=== PATIENT | male | born 1995 | race Two or more races ===

== ENCOUNTER 2020-05-10 11:21 | Day surgery (SDC) | payer BC ==
[~2020-05-10] VITALS: Ht 175.3 cm; Wt 93.0 kg
[2020-05-10] MEDS ORDERED: CEFAZOLIN PMX 1GM/50ML 50 ML ONE (12:19)
[2020-05-10] MEDS ORDERED: LIDOCAINE 1%, 20ML ONE (13:24)
[2020-05-10] MEDS ORDERED: FENTANYL PF 100 MCG/2ML ONE (13:25)
[2020-05-10] MEDS ORDERED: NALOXONE 1 MG/ML, 2ML ONE (13:26)
[2020-05-10] MEDS ORDERED: FLUMAZENIL 0.1 MG/1 ML, 5ML ONE (13:26)
[2020-05-10] MEDS ORDERED: MIDAZOLAM 1 MG/ML, 5ML ONE ×2 (13:26)
[2020-05-10 13:42] VITALS: BP 140/92
== END 2020-05-10 15:40 | disposition home or self-care (01) ==
LOC: RAD 11:21
PROVIDERS: ATTEND Internal Medicine
DX: C62.12 Malignant neoplasm of descended left testis (principal); Z90.79 Acquired absence of other genital organ(s)
CPT/HCPCS: 36561; 76937; 77001; 99156; 99157; C1788; J1642; J2250; J3010; J0690; J2310; J7030

== ENCOUNTER 2020-05-14 12:39 | Outpatient (CLI) | payer BC ==
[2020-05-10 11:58] VITALS: BP 140/92
[~2020-05-14] VITALS: Ht 175.3 cm; Wt 93.0 kg
[~2020-05-14 12:39] MED LIST: CEFAZOLIN PMX 1GM/50ML 50 ML IV ONE; PLEASE ENTER HEIGHT AND WEIGHT MC SCH; SODIUM CHLORIDE 0.9% 1,000 ML IV SCH
== END 2020-05-14 23:59 | disposition home or self-care (01) ==
LOC: CARD 12:39
PROVIDERS: ATTEND Internal Medicine
DX: C62.12 Malignant neoplasm of descended left testis (principal)
CPT/HCPCS: 94010; 94726; 94729; J0690; J7030

== ENCOUNTER 2020-11-11 07:37 | Day surgery (SDC) | payer BC ==
[~2020-11-11] VITALS: Ht 177.8 cm; Wt 97.1 kg
[2020-11-11 08:22] VITALS: BP 143/93
[2020-11-11] MEDS ORDERED: SODIUM CHLORIDE 0.9% 1,000 ML IV SCH (08:30)
[2020-11-11] MEDS ORDERED: LIDOCAINE 1%, 10ML ONE (09:26)
[2020-11-11] MEDS ORDERED: NALOXONE 1 MG/ML, 2ML ONE (09:28)
[2020-11-11] MEDS ORDERED: FENTANYL PF 100 MCG/2ML ONE ×2 (09:28)
[2020-11-11] MEDS ORDERED: MIDAZOLAM 1 MG/ML, 5ML ONE (09:28)
[2020-11-11] MEDS ORDERED: FLUMAZENIL 0.1 MG/1 ML, 5ML ONE (09:28)
[2020-11-11] MEDS ORDERED: HYDROcodone/APAP 5/325 TABLET PO ONE (11:00)
[2020-11-11] MEDS ORDERED: HYDROcodone/APAP 5/325 TABLET ONE (11:02)
== END 2020-11-11 11:40 | disposition home or self-care (01) ==
LOC: OUT 07:37
PROVIDERS: ATTEND Internal Medicine
DX: Z45.2 Encounter for adjustment and management of vascular access device (principal); C62.12 Malignant neoplasm of descended left testis; Z79.899 Other long term (current) drug therapy; Z92.21 Personal history of antineoplastic chemotherapy
CPT/HCPCS: 36590; 99156; 99157; J2250; J3010; 77001; J2310